=== PATIENT | male | born 1965 | race Caucasian/White ===

== ENCOUNTER 2017-09-24 08:37 | Observation (INO) | payer OTHER ==
--- NOTE | 2017-09-24 09:07 | ED ---
Neuro HPI - General Chief Complaint: Neuro Symptoms/Deficit Stated Complaint: slurred speech,vomiting Time Seen by Provider: 09/24/17 08:50 Source: patient, RN notes reviewed Mode of arrival: wheelchair Limitations: no limitations - History of Present Illness Is the patient presenting with stroke symptoms?: No Initial Comments: This is a 52-year-old male history of CVA and type 2 diabetes who states he had an onset this morning of not feeling well when he went to work he felt shaky like he might pass out. He states he sat down he vomited once.sivan)y. Ph. this lasted less than an hour. Is brought here for evaluation. Denies any blurry vision and headache loss of function to his upper or lower extremities. Of note the patient did run out of his gout and diabetic medication about a week ago he finally get it refilled and started taking a last night and again. He denies any other symptoms at this time. - Related Data Home Medications: Home Medications Medication Instructions Recorded Confirmed Aspirin EC [Ecotrin Low Dose] 81 mg PO DAILY 09/16/16 09/24/17 metFORMIN HCL 1,000 mg PO BID 09/16/16 09/24/17 Colchicine See Taper PO DIRECTED 09/24/17 09/24/17 Indomethacin [Indocin] 50 mg PO TID 09/24/17 09/24/17 Insulin Glargine [Lantus] 100 unit SQ HS 09/24/17 09/24/17 Insulin Glulisine [Apidra] 10 unit SQ AC-TID 09/24/17 09/24/17 Lisinopril [Zestril] 20 mg PO DAILY 09/24/17 09/24/17 Simvastatin [Zocor] 40 mg PO DAILY 09/24/17 09/24/17 Allergies/Adverse Reactions: Allergies Allergy/AdvReac Type Severity Reaction Status Date / Time peanut [Peanut Butter] Allergy Itching Verified 09/24/17 09:13 Review of Systems ROS Statement: Those systems with pertinent positive or pertinent negative responses have been documented in the HPI. ROS Other: All systems not noted in ROS Statement are negative. General Exam - General Exam Comments Initial Comments: This is a well-developed well-nourished awake alert oriented times 3 male Limitations: no limitations General appearance: alert, in no apparent distress Head exam: Present: atraumatic, normocephalic, normal inspection Eye exam: Present: normal appearance, PERRL, EOMI. Absent: scleral icterus, conjunctival injection, periorbital swelling ENT exam: Present: normal exam, mucous membranes moist Neck exam: Present: normal inspection. Absent: tenderness, meningismus, lymphadenopathy Respiratory exam: Present: normal lung sounds bilaterally. Absent: respiratory distress, wheezes, rales, rhonchi, stridor Cardiovascular Exam: Present: regular rate, normal rhythm, normal heart sounds. Absent: systolic murmur, diastolic murmur, rubs, gallop, clicks GI/Abdominal exam: Present: soft, normal bowel sounds. Absent: distended, tenderness, guarding, rebound, rigid Extremities exam: Present: normal inspection, full ROM, normal capillary refill. Absent: tenderness, pedal edema, joint swelling, calf tenderness Back exam: Present: normal inspection Neurological exam: Present: alert, oriented X3, CN II-XII intact Psychiatric exam: Present: normal affect, normal mood Skin exam: Present: warm, dry, intact, normal color. Absent: rash Stroke MDM - Lab Data Result diagrams: 09/24/17 09:00 09/24/17 09:00 Lab Results 09/24/17 09/24/17 09/24/17 Range/Units 08:54 09:00 09:00 WBC 7.6 (3.8-10.6) k/uL RBC 4.55 (4.30-5.90) m/uL Hgb 13.5 (13.0-17.5) gm/dL Hct 41.4 (39.0-53.0) % MCV 91.0 (80.0-100.0) fL MCH 29.7 (25.0-35.0) pg MCHC 32.7 (31.0-37.0) g/dL RDW 13.6 (11.5-15.5) % Plt Count 200 (150-450) k/uL Neutrophils % 80 % Lymphocytes % 12 % Monocytes % 4 % Eosinophils % 2 % Basophils % 1 % Neutrophils # 6.1 (1.3-7.7) k/uL Lymphocytes # 0.9 L (1.0-4.8) k/uL Monocytes # 0.3 (0-1.0) k/uL Eosinophils # 0.2 (0-0.7) k/uL Basophils # 0.0 (0-0.2) k/uL PT (9.0-12.0) sec INR (<1.2) APTT (22.0-30.0) sec Sodium (137-145) mmol/L Potassium (3.5-5.1) mmol/L Chloride (98-107) mmol/L Carbon Dioxide (22-30) mmol/L Anion Gap mmol/L BUN (9-20) mg/dL Creatinine (0.66-1.25) mg/dL Est GFR (MDRD) Af Amer (>60 ml/min/1.73 sqM) Est GFR (MDRD) Non-Af (>60 ml/min/1.73 sqM) Glucose (74-99) mg/dL POC Glucose (mg/dL) 214 H (75-99) mg/dL POC Glu [employer] Lead ID Lizzie Osman Calcium (8.4-10.2) mg/dL Magnesium (1.6-2.3) mg/dL Total Bilirubin (0.2-1.3) mg/dL AST (17-59) U/L ALT (21-72) U/L Alkaline Phosphatase (38-126) U/L Total Creatine Kinase 513 H (55-170) U/L CK-MB (CK-2) 6.1 H* (0.0-2.4) ng/mL CK-MB (CK-2) Rel Index 1.2 Troponin I <0.012 (0.000-0.034) ng/mL Total Protein (6.3-8.2) g/dL Albumin (3.5-5.0) g/dL 09/24/17 09/24/17 Range/Units 09:00 09:00 WBC (3.8-10.6) k/uL RBC (4.30-5.90) m/uL Hgb (13.0-17.5) gm/dL Hct (39.0-53.0) % MCV (80.0-100.0) fL MCH (25.0-35.0) pg MCHC (31.0-37.0) g/dL RDW (11.5-15.5) % Plt Count (150-450) k/uL Neutrophils % % Lymphocytes % % Monocytes % % Eosinophils % % Basophils % % Neutrophils # (1.3-7.7) k/uL Lymphocytes # (1.0-4.8) k/uL Monocytes # (0-1.0) k/uL Eosinophils # (0-0.7) k/uL Basophils # (0-0.2) k/uL PT 10.2 (9.0-12.0) sec INR 1.0 (<1.2) APTT 22.6 (22.0-30.0) sec Sodium 141 (137-145) mmol/L Potassium 4.8 (3.5-5.1) mmol/L Chloride 108 H (98-107) mmol/L Carbon Dioxide 21 L (22-30) mmol/L Anion Gap 12 mmol/L BUN 16 (9-20) mg/dL Creatinine 0.69 (0.66-1.25) mg/dL Est GFR (MDRD) Af Amer >60 (>60 ml/min/1.73 sqM) Est GFR (MDRD) Non-Af >60 (>60 ml/min/1.73 sqM) Glucose 236 H (74-99) mg/dL POC Glucose (mg/dL) (75-99) mg/dL POC Glu Retail Sales Lead ID Calcium 9.1 (8.4-10.2) mg/dL Magnesium 1.6 (1.6-2.3) mg/dL Total Bilirubin 0.5 (0.2-1.3) mg/dL AST 45 (17-59) U/L ALT 41 (21-72) U/L Alkaline Phosphatase 96 (38-126) U/L Total Creatine Kinase (55-170) U/L CK-MB (CK-2) (0.0-2.4) ng/mL CK-MB (CK-2) Rel Index Troponin I (0.000-0.034) ng/mL Total Protein 7.9 (6.3-8.2) g/dL Albumin 4.0 (3.5-5.0) g/dL - NIH Stroke Scale 1a. Level of Consciousness: (0) alert 1b. LOC Questions: (0) answers correctly 1c. LOC Commands: (0) performs tasks correctly 2. Best Gaze: (0) normal 3. Visual: (0) no visual loss 4. Facial Palsy: (0) normal symmetrical movement 5a. Motor Arm Left: (0) no drift 5b. Motor Arm Right: (0) no drift 6a. Motor Leg Left: (0) no drift 6b. Motor Leg Right: (0) no drift 7. Limb Ataxia: (0) absent 8. Sensory: (0) normal 9. Best Language: (0) no aphasia 10. Dysarthria: (0) normal 11. Extinction/Inattention: (0) no abnormality - Medical Decision Making I did discuss findings with the patient family members or present. I also discussed the case with Dr. Manzano. Patient will be admitted for evaluation of TIA neurology will be consulted. - EKG Data -: EKG Interpreted by Nd EKG shows normal: sinus rhythm (Sinus rhythm rate is 66. Interval 172 QRS 142 QT/QTC of 440/461 evidence a right bundle-branch block no acute ST-T wave changes.) Past Medical History Past Medical History: CVA/TIA, Diabetes Mellitus, Hypertension Additional Past Medical History / Comment(s): gout History of Any Multi-Drug Resistant Organisms: MRSA Date of last positivie culture/infection: 2012 MDRO Source:: face/back Past Surgical History: No Surgical Hx Reported Past Psychological History: No Psychological Hx Reported Smoking Status: Never smoker Past Alcohol Use History: None Reported Past Drug Use History: None Reported Course Vital Signs 09/24/17 09/24/17 09/24/17 08:42 09:00 10:15 Temperature 98.1 F Pulse Rate 70 70 64 Respiratory 20 18 18 Rate Blood Pressure 162/89 145/91 137/84 O2 Sat by Pulse 100 98 98 Oximetry 09/24/17 09/24/17 10:40 11:34 Temperature Pulse Rate 63 79 Respiratory 18 18 Rate Blood Pressure 133/83 127/88 O2 Sat by Pulse 98 98 Oximetry - Reevaluation(s) Reevaluation #1: 09/24/17 11:36 Reevaluation the patient earlier revealed no recurrence of symptoms. Disposition Clinical Impression: Transient cerebral ischemia, Near syncope Disposition: ADMITTED IP TO THIS HOSP Condition: Stable Referrals: Nonstaff,Physician [REFERRING] - 1-2 days
[2017-09-24] MEDS: SODIUM CHLORIDE 0.9% 1,000 ML IV STA ×3 (09:10→18:04)
[2017-09-24 09:22] LABS: Glucose,Whole Blood 214 mg/dL (75-99)
[2017-09-24 09:25] LABS: Basophils % (A) 1 %; CH 30.6; CHCM 33.8; Eosinophils # (A) 0.2 k/uL (0-0.7); Eosinophils % (A) 2 %; HCT 41.4 % (39.0-53.0); HGB 13.5 gm/dL (13.0-17.5); Luc # (Auto) 0.13; Luc % (Auto) 2; Lymphocytes # (A) 0.9 k/uL (1.0-4.8); Lymphocytes % (A) 12 %; MCH 29.7 pg (25.0-35.0); MCHC 32.7 g/dL (31.0-37.0); Mean Platelet Volume 7.1; Monocytes # (A) 0.3 k/uL (0-1.0); Monocytes % (A) 4 %; Neutrophils # (A) 6.1 k/uL (1.3-7.7); Neutrophils % (A) 80 %; RBC 4.55 m/uL (4.30-5.90); RDW 13.6 % (11.5-15.5); WBC 7.6 k/uL (3.8-10.6); WBC (Perox) 7.84
[2017-09-24 09:35] LABS: Partial Thromboplastin Time 22.6 sec (22.0-30.0)
[2017-09-24 09:41] LABS: ALT 41 U/L (21-72); AST 45 U/L (17-59); Alkaline Phosphatase 96 U/L (38-126); Anion Gap 12 mmol/L; Blood Urea Nitrogen 16 mg/dL (9-20); Calcium 9.1 mg/dL (8.4-10.2); Carbon Dioxide 21 mmol/L (22-30); Chloride 108 mmol/L (98-107); Glucose 236 mg/dL (74-99); Magnesium 1.6 mg/dL (1.6-2.3); Non-African American GFR(MDRD) >60 (>60 ml/min/1.73 sqM); Sodium 141 mmol/L (137-145); Total Bilirubin 0.5 mg/dL (0.2-1.3); Total Protein 7.9 g/dL (6.3-8.2)
[2017-09-24 09:42] LABS: Prothrombin Time 10.2 sec (9.0-12.0)
--- NOTE | 2017-09-24 09:43 | CT ---
EXAMINATION TYPE: CT brain wo con for TPA DATE OF EXAM: 09/24/2017 COMPARISON: 05/24/2010 HISTORY: 52-year-old male neurologic deficits, Slurred speech, "not feeling well" TECHNIQUE: Examination was done in axial plane without intravenous contrast. Coronal and sagittal r econstructions performed. CT DLP: 1072.3 mGycm Automated exposure control for dose reduction was used. FINDINGS: There is no evidence of acute intracranial hemorrhage, acute ischemic changes, mass, mass-effect, or extra-axial fluid collection. There is no effacement of cerebral sulci or basal subarachnoid cister ns. There is no hydrocephalus. There is no midline shift. Guzmán-white matter distinction is preserv ed. Mild mucosal thickening ethmoid air cells and inferior maxillary sinuses. Patient's gaze is divergent suggesting underlying strabismus. IMPRESSION: No acute intracranial abnormality seen at this time. If symptoms persist, follow-up CT or MRI.
[2017-09-24 09:49] LABS: Creatine Kinase 513 U/L (55-170)
--- NOTE | 2017-09-24 09:51 | XR ---
EXAMINATION TYPE: XR chest 2V DATE OF EXAM: 09/24/2017 COMPARISON: Prior chest x-ray 05/24/2010 HISTORY: Altered mental status TECHNIQUE: Frontal and lateral views of the chest are obtained. FINDINGS: Patient is rotated. There are overlying cardiac leads. Right hemidiaphragm is elevated. No airspace disease, pneumothorax, or pleural effusion. Eventration of the right hemidiaphragm is noted . Cardiomediastinal silhouette, pulmonary vascularity and anisha are not significantly changed accounti ng for technique. IMPRESSION: Stable exam, no acute cardiopulmonary disease.
[2017-09-24 09:54] LABS: Potassium 4.8 mmol/L (3.5-5.1)
[2017-09-24 10:01] LABS: Troponin I <0.012 ng/mL (0.000-0.034)
[2017-09-24 10:15] LABS: Creatine Kinase MB 6.1 ng/mL (0.0-2.4)
[2017-09-24] MEDS ORDERED: ASPIRIN 325 MG TAB PO STA (11:38)
[2017-09-24] MEDS ORDERED: SODIUM CHLORIDE 0.9% 1,000 ML IV SCH (11:45)
[2017-09-24] MEDS ORDERED: ASPIRIN 81 MG PO STA (11:49)
--- NOTE | 2017-09-24 14:51 | P.HPIM ---
History of Present Illness H&P Date: 09/24/17 Chief Complaint: near syncope 52 years old male with past medical history ofTIA ( near syncope) 7 years ago, diabetes2 with diabetic retinopathy, hypertension patient of Dr. Trinidad presents today with symptoms of dizziness that started suddenly at work associated with increased generalized weakness. Patient said he became nauseous during the episode. He called his at 7:30 AM who noticed slurring of speech and patient was brought to the ED for evaluation. On my evaluation patient is asymptomatic with no dizziness or weakness or numbness in any of the extremities. Patient did not have any slurring of speech. According to the bedside patient had missed his evening dose of insulin and has not been taking his metformin for past 7 days. Patient is known to be noncompliant to his insulin and last HbA1c was 12. He denies increased urination, chest pain, palpitation, ringing of ears, loss of vision or hearing loss. Patient denies any balance abnormality when he walks.Laboratory workup including CBC was unremarkable, BNP suggested mild metabolic acidosis with a glucose of 236. CK was elevated explained [address] head was unremarkable. Carotid Dopplers ordered, Chest x-ray negative for any acute abnormality. Neurology was consulted for an acute stroke. Telemetry was ordered. Echo was ordered. Review of Systems Constitutional: Denies chills, Denies fever Eyes: denies blurred vision, denies pain Ears: deny: decreased hearing, ear discharge Ears, nose, mouth and throat: Denies headache, Denies sore throat Cardiovascular: Reports lightheadedness, Denies chest pain, Denies edema, Denies high blood pressure, Denies leg edema, Denies orthopnea, Denies rapid heart beat, Denies shortness of breath Respiratory: Denies cough Gastrointestinal: Denies abdominal pain, Denies diarrhea, Denies nausea, Denies vomiting Genitourinary: Denies discharge, Denies dysuria, Denies incontinence, Denies urinary frequency, Denies urinary retention Musculoskeletal: Denies frequent falls, Denies gait dysfunction, Denies leg numbness/tingling Integumentary: Denies pruritus, Denies rash Neurological: Reports change in speech, Denies aphasia, Denies ataxia, Denies balance difficulties, Denies change in mentation, Denies confusion, Denies double vision, Denies gait dysfunction, Denies loss of vision, Denies motor disturbance, Denies numbness, Denies weakness Endocrine: Denies fatigue, Denies weight change Past Medical History Past Medical History: CVA/TIA, Diabetes Mellitus, GERD/Reflux, Hyperlipidemia, Hypertension Additional Past Medical History / Comment(s): TIA in 2009, IDDM type II, gout R great toe. History of Any Multi-Drug Resistant Organisms: MRSA Date of last positivie culture/infection: 2012 MDRO Source:: face/back Past Surgical History: No Surgical Hx Reported Additional Past Surgical History / Comment(s): colonoscopy-normal Additional Past Anesthesia/Blood Transfusion Reaction / Comment(s): Pt has never had general or spinal anesthesia. Smoking Status: Never smoker - Past Family History Father Family Medical History: Diabetes Mellitus Mother Family Medical History: No Reported History, Diabetes Mellitus Medications and Allergies Home Medications Medication Instructions Recorded Confirmed Type Aspirin EC [Ecotrin Low Dose] 81 mg PO DAILY 09/16/16 09/24/17 History metFORMIN HCL 1,000 mg PO BID 09/16/16 09/24/17 History Colchicine See Taper PO DIRECTED 09/24/17 09/24/17 History Indomethacin [Indocin] 50 mg PO TID 09/24/17 09/24/17 History Insulin Glargine [Lantus] 100 unit SQ HS 09/24/17 09/24/17 History Insulin Glulisine [Apidra] 10 unit SQ AC-TID 09/24/17 09/24/17 History Lisinopril [Zestril] 20 mg PO DAILY 09/24/17 09/24/17 History Simvastatin [Zocor] 40 mg PO DAILY 09/24/17 09/24/17 History Allergies Allergy/AdvReac Type Severity Reaction Status Date / Time peanut [Peanut Butter] Allergy Itching Verified 09/24/17 09:13 Physical Exam Vitals: Vital Signs Temp Pulse Pulse Resp BP BP Pulse Ox 09/24/17 13:55 98.7 F 82 20 136/80 98 09/24/17 11:34 79 18 127/88 98 09/24/17 10:40 63 18 133/83 98 09/24/17 10:15 64 18 137/84 98 09/24/17 09:45 63 18 129/82 98 09/24/17 09:15 64 18 134/88 98 09/24/17 09:00 70 18 145/91 98 09/24/17 08:42 98.1 F 70 20 162/89 100 Intake and Output 09/23/17 09/24/17 09/24/17 22:59 06:59 14:59 Other: Weight 103.419 kg Patient Weight 09/25/17 06:59 Weight 103.419 kg - Constitutional General appearance: no acute distress - EENT Eyes: EOMI, PERRLA, no photophobia, dentition normal Ears: bilateral: normal - Neck Neck: lymphadenopathy, normal ROM, no stridor Carotids: bilateral: upstroke diminished - Respiratory Respiratory: bilateral: CTA, negative: diminished, dullness, rales, rhonchi, wheezing - Cardiovascular Rhythm: regular Heart sounds: normal: S1, S2 Abnormal Heart Sounds: no systolic murmur, no diastolic murmur - Gastrointestinal General gastrointestinal: normal bowel sounds, no organomegaly - Neurologic Strength, right lower extremity slightly weaker than left with 4+/5 No numbness, reflexes are normal, no coordination defect Neurologic: CNII-XII intact - Psychiatric Psychiatric: A&O x's 3, appropriate affect Results CBC & Chem 7: 09/24/17 09:00 09/24/17 09:00 Labs: Abnormal Lab Results - Last 24 Hours (Table) 09/24/17 09/24/17 09/24/17 Range/Units 08:54 09:00 09:00 Lymphocytes # 0.9 L (1.0-4.8) k/uL Chloride (98-107) mmol/L Carbon Dioxide (22-30) mmol/L Glucose (74-99) mg/dL POC Glucose (mg/dL) 214 H (75-99) mg/dL Total Creatine Kinase 513 H (55-170) U/L CK-MB (CK-2) 6.1 H* (0.0-2.4) ng/mL 09/24/17 Range/Units 09:00 Lymphocytes # (1.0-4.8) k/uL Chloride 108 H (98-107) mmol/L Carbon Dioxide 21 L (22-30) mmol/L Glucose 236 H (74-99) mg/dL POC Glucose (mg/dL) (75-99) mg/dL Total Creatine Kinase (55-170) U/L CK-MB (CK-2) (0.0-2.4) ng/mL Thrombosis Risk Factor Assmnt - DVT/VTE Prophylaxis DVT/VTE Prophylaxis: Pharmacologic Prophylaxis ordered, Mechanical Prophylaxis ordered - Choose All That Apply Any of the Below Risk Factors Present?: Yes Each Factor Represents 1 point: Age 41-60 years, Obesity (BMI >25) Other Risk Factors: No Other congenital or acquired thrombophilia - If yes, enter type in comment: No Thrombosis Risk Factor Assessment Total Risk Factor Score: 2 Thrombosis Risk Factor Assessment Level: Low Risk Assessment and Plan Plan: #1 Presyncope- differential include TIA/ CVA, dehydration secondary to hyperglycemia, arrhythmia - Continue aspirin and statin - Neurology consult placed - Carotid Dopplers and echo ordered - There is some weakness in the right as compared to the left lower extremity but patient states it's chronic, PTOT consulted - Orthostatic check for dehydration as patient was hyperglycemic - Telemetry - Speech evaluation #2 type 2 diabetes - Continue Lantus at 75 units at at bedtime with lispro 10 units with meal #3 hypertension hold lisinopril for permissive hypertension #4 gout continue colchicine DVT prophylaxis with heparin CODE STATUS full code Disposition - patient may need 1 or 2 inpatient nights
--- NOTE | 2017-09-24 15:17 | US ---
EXAMINATION TYPE: US carotid duplex BILAT DATE OF EXAM: 09/24/2017 COMPARISON: Prior carotid ultrasound May 25, 2010 CLINICAL HISTORY: Stenosis. slurred speech, h/o TIA EXAM MEASUREMENTS: RIGHT: Peak Systolic Velocity (PSV) cm/sec ----- Right CCA: 70.3 ----- Right ICA: 83.9 ----- Right ECA: 97.9 ICA/CCA ratio: 1.2 RIGHT: End Diastole cm/sec ----- Right CCA: 17.1 ----- Right ICA: 17.9 ----- Right ECA: 17.1 LEFT: Peak Systolic Velocity (PSV) cm/sec ----- Left CCA: 54.4 ----- Left ICA: 100.0 ----- Left ECA: 87.8 ICA/CCA ratio: 1.8 LEFT: End Diastole cm/sec ----- Left CCA: 18.5 ----- Left ICA: 39.8 ----- Left ECA: 12.8 VERTEBRALS (direction of flow): Right Vertebral: Antegrade Left Vertebral: Antegrade Rhythm: Normal Mild homogeneous plaque seen with no stenosis Grayscale images show mild shadowing peripheral plaque at bilateral carotid bulbs. Velocity measureme nts and ratios are within normal limits bilaterally. IMPRESSION: Mild atherosclerotic change bilaterally without hemodynamically significant stenosis see n in either internal carotid artery.
[2017-09-24] MEDS: INSULIN ASPART 100 UNIT/ML 1 ML 10 ML VIAL SQ SCH ×4 (16:22→21:38)
[2017-09-24 16:52] LABS: Glucose,Whole Blood 150 mg/dL (75-99)
--- NOTE | 2017-09-24 19:49 | P.CNNES ---
History of Present Illness Consult date: 09/24/17 History of Present Illness: The patient is a 52-year-old right-handed male who was in his usual state of health until this morning he got up to go to work and he did take a new medication which was prescribed for his gout.. He felt lightheadedness at work and he had to sit down and then he developed some nausea and went to the restroom and vomited. He called his and asked her to bring his Accu-Chek to work so he could check his glucose. He did not take his insulin the previous night. His felt that his speech was slurred and she came to the workplace and took him to the hospital. The patient had been off of his medications for a week and then restarted them last night including lisinopril He denied focal weakness numbness visual changes loss of speech or headache. He had a CAT scan of the brain which was normal. He had a carotid ultrasound which was negative. He states he had a similar episode about 7 years ago where he almost passed out. At that time he had been started on aspirin which she has routinely been taking. He takes 1 low-dose aspirin daily. He has also been on lisinopril had been off of it for a week and then suddenly took it last night. In the emergency room he had total creatinine kinase of 513 and a CK-MB of 6.1 Review of Systems Constitutional: Denies chills, Denies fever Ears, nose, mouth and throat: Denies headache, Denies sore throat Cardiovascular: Denies chest pain, Denies shortness of breath Respiratory: Denies cough Musculoskeletal: Denies myalgias Neurological: Denies numbness, Denies weakness Psychiatric: Denies anxiety, Denies depression Past Medical History Past Medical History: CVA/TIA, Diabetes Mellitus, GERD/Reflux, Hyperlipidemia, Hypertension Additional Past Medical History / Comment(s): TIA in 2009, IDDM type II, gout R great toe. History of Any Multi-Drug Resistant Organisms: MRSA Date of last positivie culture/infection: 2012 MDRO Source:: face/back Past Surgical History: No Surgical Hx Reported Additional Past Surgical History / Comment(s): colonoscopy-normal Additional Past Anesthesia/Blood Transfusion Reaction / Comment(s): Pt has never had general or spinal anesthesia. Smoking Status: Never smoker - Past Family History Father Family Medical History: Diabetes Mellitus Mother Family Medical History: No Reported History, Diabetes Mellitus Medications and Allergies Home Medications Medication Instructions Recorded Confirmed Type Aspirin EC [Ecotrin Low Dose] 81 mg PO DAILY 09/16/16 09/24/17 History metFORMIN HCL 1,000 mg PO BID 09/16/16 09/24/17 History Colchicine See Taper PO DIRECTED 09/24/17 09/24/17 History Indomethacin [Indocin] 50 mg PO TID 09/24/17 09/24/17 History Insulin Glargine [Lantus] 100 unit SQ HS 09/24/17 09/24/17 History Insulin Glulisine [Apidra] 10 unit SQ AC-TID 09/24/17 09/24/17 History Lisinopril [Zestril] 20 mg PO DAILY 09/24/17 09/24/17 History Simvastatin [Zocor] 40 mg PO DAILY 09/24/17 09/24/17 History Allergies Allergy/AdvReac Type Severity Reaction Status Date / Time peanut [Peanut Butter] Allergy Itching Verified 09/24/17 09:13 Physical Examination - Vital Signs Vital Signs: Vital Signs Temp Pulse Pulse Pulse Resp BP BP 09/24/17 16:15 97.0 F L 65 18 126/74 09/24/17 14:10 97.2 F L 66 18 133/84 09/24/17 13:55 98.7 F 82 20 136/80 09/24/17 11:34 79 18 127/88 09/24/17 10:40 63 18 133/83 09/24/17 10:15 64 18 137/84 09/24/17 09:45 63 18 129/82 09/24/17 09:15 64 18 134/88 09/24/17 09:00 70 18 145/91 09/24/17 08:42 98.1 F 70 20 162/89 Pulse Ox 09/24/17 16:15 97 09/24/17 14:10 99 09/24/17 13:55 98 09/24/17 11:34 98 09/24/17 10:40 98 09/24/17 10:15 98 09/24/17 09:45 98 09/24/17 09:15 98 09/24/17 09:00 98 09/24/17 08:42 100 Intake and Output 09/24/17 09/24/17 09/24/17 06:59 14:59 22:59 Intake Total 800 240 Balance 800 240 Intake: Intake, IV Titration 800 Amount Sodium Chloride 0.9% 1, 800 000 ml @ 100 mls/hr IV . Q10H STA Rx#:[id number] Oral 240 Other: Weight 103.419 kg Patient Weight 09/25/17 06:59 Weight 103.419 kg - Constitutional General appearance: obese - EENT EENT: ATNC, hearing intact, vision intact - Respiratory Respiratory: lungs clear - Cardiovascular Cardiovascular: regular rate, normal S1, normal S2 - Neurologic Cranial nerve examination: PERRL, EOMI, VFF, V1/V2/V3 grossly intact, face symmetric, tongue midline Speech examination: intact Sensorimotor examination: intact Detailed motor examination: grossly full strength in all extremities - Psychiatric Psychiatric: mood/affect appropriate Results - Laboratory Findings CBC and BMP: 09/24/17 09:00 09/24/17 09:00 Abnormal Lab Findings: Abnormal Labs 09/24/17 09/24/17 09/24/17 08:54 09:00 09:00 Lymphocytes # 0.9 L Chloride Carbon Dioxide Glucose POC Glucose (mg/dL) 214 H Total Creatine Kinase 513 H CK-MB (CK-2) 6.1 H* 09/24/17 09/24/17 09:00 16:50 Lymphocytes # Chloride 108 H Carbon Dioxide 21 L Glucose 236 H POC Glucose (mg/dL) 150 H Total Creatine Kinase CK-MB (CK-2) Assessment and Plan (1) Near syncope Current Visit: Yes Status: Acute SNOMED Code(s): 736900137 (2) Transient cerebral ischemia Current Visit: Yes Status: Acute SNOMED Code(s): 395404853 Plan: The patient is a 52-year-old man with history of near syncope. He presented to the hospital with episode at work consisting of a feeling of lightheadedness which suddenly came upon him where he had sit down feeling like he was going to pass out. He also had some nausea and vomiting afterward. He felt lightheaded and his brought him to the emergency room. He is currently back to his baseline. The patient has likely had a near syncopal event. His TIA workup has so far been negative and echo is pending. Recommend increase low-dose aspirin to 80 mg twice a day. Recommend cardiology evaluation.
[2017-09-24] MEDS ORDERED: INSULIN DETEMIR 100 UNIT/ML 10 ML VIAL SQ SCH (21:00)
[2017-09-24] MEDS: FAMOTIDINE 20 MG/2 ML VIAL IV SCH (21:00)
[2017-09-24] MEDS: SODIUM CHLORIDE 0.9% 1,000 ML IV SCH (21:00)
[2017-09-24] MEDS: HEPARIN SODIUM,PORCINE 5,000 UNIT/ML 1 ML VIAL SQ SCH (21:02)
[2017-09-24 21:20] LABS: Glucose,Whole Blood 86 mg/dL (75-99)
[2017-09-24 21:23] LABS: Appearance,Urine Clear (Clear); Bilirubin,Urine Negative (Negative); Glucose,Urine (UA) 3+ (Negative); Ketones,Urine Negative (Negative); Leukocyte Esterase,Urine Negative (Negative); Nitrite,Urine Negative (Negative); PH, Urine 6.5 (5.0-8.0); Protein,Urine Negative (Negative); Specific Gravity,Urine 1.014 (1.001-1.035); UA Billing (MACRO vs. MICRO) CHEM; Urobilinogen,Urine <2.0 mg/dL (<2.0)
[2017-09-25] MEDS: SODIUM CHLORIDE 0.9% 1,000 ML IV SCH ×2 (05:02→12:14)
[2017-09-25 06:20] LABS: Glucose,Whole Blood 146 mg/dL (75-99)
[2017-09-25 06:23] LABS: Basophils % (A) 1 %; CH 29.8; CHCM 32.4; Eosinophils # (A) 0.3 k/uL (0-0.7); Eosinophils % (A) 5 %; HCT 37.6 % (39.0-53.0); HDW 2.69; HGB 11.9 gm/dL (13.0-17.5); Luc # (Auto) 0.17; Luc % (Auto) 3; Lymphocytes # (A) 1.5 k/uL (1.0-4.8); Lymphocytes % (A) 27 %; MCH 29.3 pg (25.0-35.0); MCHC 31.6 g/dL (31.0-37.0); MCV 92.5 fL (80.0-100.0); Mean Platelet Volume 7.5; Monocytes # (A) 0.3 k/uL (0-1.0); Monocytes % (A) 6 %; Neutrophils # (A) 3.3 k/uL (1.3-7.7); Neutrophils % (A) 59 %; RBC 4.07 m/uL (4.30-5.90); RDW 15.1 % (11.5-15.5); WBC 5.7 k/uL (3.8-10.6); WBC (Perox) 5.45
[2017-09-25 06:31] LABS: Anion Gap 5 mmol/L; Blood Urea Nitrogen 15 mg/dL (9-20); Calcium 8.9 mg/dL (8.4-10.2); Carbon Dioxide 23 mmol/L (22-30); Chloride 111 mmol/L (98-107); Cholesterol 176 mg/dL (<200); Glucose 146 mg/dL (74-99); HDL Cholesterol 27 mg/dL (40-60); Non-African American GFR(MDRD) >60 (>60 ml/min/1.73 sqM); Potassium 4.2 mmol/L (3.5-5.1); Sodium 139 mmol/L (137-145)
[2017-09-25] MEDS: INSULIN ASPART 100 UNIT/ML 1 ML 10 ML VIAL SQ SCH ×4 (07:07→12:15)
[2017-09-25] MEDS: FAMOTIDINE 20 MG/2 ML VIAL IV SCH (08:05)
[2017-09-25 08:09] VITALS: TEMP 97
[2017-09-25] MEDS: HEPARIN SODIUM,PORCINE 5,000 UNIT/ML 1 ML VIAL SQ SCH (08:09)
[2017-09-25] MEDS ORDERED: CLOPIDOGREL 75 MG TAB PO SCH (09:00)
[2017-09-25] MEDS ORDERED: NON-FORMULARY DRUG (Aspirin Ec 81 MG) PO SCH (09:00)
[2017-09-25] MEDS ORDERED: ASPIRIN 325 MG TAB PO SCH (09:00)
[2017-09-25] MEDS ORDERED: ATORVASTATIN 20 MG TAB PO SCH (09:00)
[2017-09-25 11:06] VITALS: BP 145/80; PULSE 65; RESP 18
[2017-09-25 12:04] LABS: Glucose,Whole Blood 181 mg/dL (75-99)
--- NOTE | 2017-09-25 12:24 | ECHOF ---
Referral Reason:near syncope MEASUREMENTS -------- HEIGHT: 165.1 cm WEIGHT: 103.4 kg BP: 30/40 RVIDd: 3.9 cm (< 3.3) IVSd: 1.3 cm (0.6 - 1.1) LVIDd: 4.6 cm (3.9 - 5.3) LVPWd: 1.1 cm (0.6 - 1.1) IVSs: 1.7 cm LVIDs: 3.3 cm LVPWs: 1.1 cm LA Diam: 4.7 cm (2.7 - 3.8) LAESV Index (A-L): 30.60 ml/m Ao Diam: 3.5 cm (2.0 - 3.7) AV Cusp: 2.0 cm (1.5 - 2.6) LA Diam: 5.0 cm (2.7 - 3.8) MV EXCURSION: 19.523 mm (> 18.000) MV EF SLOPE: 90 mm/s (70 - 150) EPSS: 0.5 cm MV E Jaguar: 0.65 m/s MV DecT: 175 ms MV A Jaguar: 0.96 m/s MV E/A Ratio: 0.67 RAP: 5.00 mmHg RVSP: 24.03 mmHg FINDINGS -------- Sinus rhythm. This was a technically excellent study. The left ventricular size is normal. There is mild concentric left ventricular hypertrophy. Overa ll left ventricular systolic function is normal with, an EF between 55 - 60 %. The right ventricle is mildly enlarged. LA is midly dilated 29-33ml/m2. The right atrial size is normal. The aortic valve is trileaflet, and appears structurally normal. No aortic stenosis or regurgitation. Mild mitral regurgitation is present. No regurgitation noted There is no evidence of pulmonary hypertension. The right ventricular syst olic pressure, as measured by Doppler, is 24.03mmHg. There is no pulmonic regurgitation present. The aortic root size is normal. There is no pericardial effusion. CONCLUSIONS -------- 1. The left ventricular size is normal. 2. There is mild concentric left ventricular hypertrophy. 3. Overall left ventricular systolic function is normal with, an EF between 55 - 60 %. 4. The right ventricle is mildly enlarged. 5. LA is midly dilated 29-33ml/m2. 6. The aortic valve is trileaflet, and appears structurally normal. No aortic stenosis or regurgitati on. 7. Mild mitral regurgitation is present. 8. No regurgitation noted 9. There is no evidence of pulmonary hypertension. 10. The right ventricular systolic pressure, as measured by Doppler, is 24.03mmHg. 11. There is no pulmonic regurgitation present. 12. The aortic root size is normal. 13. There is no pericardial effusion. LICENSED PRACTICAL NURSE: Deb Knowles RDCS
--- NOTE | 2017-09-25 12:59 | P.DS ---
Providers Date of admission: 09/24/17 11:38 Expected date of discharge: 09/25/17 Attending physician: Tamiko Manzano MD Consults: 09/24/17 11:51 Consult Physician Stat Consulting Provider: Shankar Waldron Consult Reason/Comments: TIA Do you want consulting provider notified?: Yes Primary care physician: [facility] Course: 52 years old male with past medical history ofTIA ( near syncope) 7 years ago, diabetes2 with diabetic retinopathy, hypertension patient of Dr. Trinidad presents today with symptoms of dizziness that started suddenly at work associated with increased generalized weakness. Patient said he became nauseous during the episode. He called his at 7:30 AM who noticed slurring of speech and patient was brought to the ED for evaluation. On my evaluation patient is asymptomatic with no dizziness or weakness or numbness in any of the extremities. Patient did not have any slurring of speech. According to the bedside patient had missed his evening dose of insulin and has not been taking his metformin for past 7 days. Patient is known to be noncompliant to his insulin and last HbA1c was 12. He denies increased urination, chest pain, palpitation, ringing of ears, loss of vision or hearing loss. Patient denies any balance abnormality when he walks.Laboratory workup including CBC was unremarkable, BNP suggested mild metabolic acidosis with a glucose of 236. CK was elevated explained [address] head was unremarkable. Carotid Dopplers ordered, Chest x-ray negative for any acute abnormality. Neurology was consulted for an acute stroke. Telemetry was ordered. Echo was ordered. 09/25: Carotid Doppler showed mild atherosclerotic change bilaterally without hemodynamically significant stenosis. Patient has been seen by Dr. Chicho Waldron with recommendations to increase low-dose aspirin to twice daily and cardiology evaluation. Echocardiogram revealed mild concentric left hypertrophy, EF 55-60% , LA mildly dilated at 29-33. No aortic stenosis or regurgitation. Mild mitral regurgitation. No pulmonary hypertension. Orthostatic vital signs were taken which were negative. Patient will be discharged home today in stable condition. Discharge Diagnoses: #1 Presyncope secondary to dehydration #2 type 2 diabetes, insulin requiring #3 hypertension #4 gout continue colchicine Discharge plan: Return home Impression and plan of care have been directed as dictated by the signing physician. Selma Hoffman nurse practitioner acting as scribe for signing physician. Patient Condition at Discharge: Good Plan - Discharge Summary Discharge Rx Participant: No New Discharge Prescriptions: Continue metFORMIN HCL 1,000 mg PO BID Insulin Glulisine [Apidra] 10 unit SQ AC-TID Colchicine See Taper PO DIRECTED Lisinopril [Zestril] 20 mg PO DAILY Simvastatin [Zocor] 40 mg PO DAILY Insulin Glargine [Lantus] 100 unit SQ HS Indomethacin [Indocin] 50 mg PO TID Changed Aspirin EC [Ecotrin Low Dose] 81 mg PO BID #0 Discharge Medication List metFORMIN HCL 1,000 mg PO BID 09/16/16 [History] Colchicine See Taper PO DIRECTED 09/24/17 [History] Indomethacin [Indocin] 50 mg PO TID 09/24/17 [History] Insulin Glargine [Lantus] 100 unit SQ HS 09/24/17 [History] Insulin Glulisine [Apidra] 10 unit SQ AC-TID 09/24/17 [History] Lisinopril [Zestril] 20 mg PO DAILY 09/24/17 [History] Simvastatin [Zocor] 40 mg PO DAILY 09/24/17 [History] Aspirin EC [Ecotrin Low Dose] 81 mg PO BID #0 09/25/17 [Rx] Follow up Appointment(s)/Referral(s): Adam Werner MD [Primary Care Provider] - 10/01/17 2:30 pm Patient Instructions/Handouts: Syncope (DC) Discharge Disposition: HOME SELF-CARE
--- NOTE | 2017-09-25 20:48 | EEG ---
ELECTROENCEPHALOGRAM REPORT DATE OF EE09/25/2017. REFERRING PHYSICIAN: Dr. Manzano. CONSULTING INTERPRETING PHYSICIAN: Dr. Shankar Waldron. ELECTROENCEPHALOGRAPHIC EXAMINATION REPORT: INDICATION FOR EXAMINATION: This patient is a 52-year-old male being evaluated for possible TIA. AGE: 52. EEG FINDINGS: A routine 21 channel awake digital EEG recording was accomplished utilizing the 10-20 international system with bipolar and referential montages. The background activity in the most alert resting state consists of a low to medium amplitude, fairly well- developed and well sustained 7-8 Hz activity over the posterior head regions. This posterior rhythm attenuates to eye opening. There is a small amount of low amplitude 18-20 Hz beta activity seen maximally over the anterior head regions. Muscle and movement artifact was observed on a few occasions during the tracing. Hyperventilation was not performed. Photic stimulation and flash frequencies of 2-30 Hz produced a good symmetrical occipital driving response. No epileptiform discharges were seen. IMPRESSION: This EEG is normal for the patient's age. The EEG failed to reveal any focal, lateralized, or epileptiform abnormalities. Clinical correlation is recommended. MMODL / IJN: [id number] /
[2017-09-25] MEDS ORDERED: ASPIRIN 81 MG PO SCH (21:00)
[2017-09-25] MEDS ORDERED: FAMOTIDINE 20 MG TAB PO SCH (21:00)
== END 2017-09-25 14:29 | disposition home or self-care (01) ==
LOC: EC 08:37 → 6SEL 11:38
PROVIDERS: ADMIT Internal Medicine; ATTEND Internal Medicine
DX: E86.0 Dehydration (principal); K21.9 Gastro-esophageal reflux disease without esophagitis; E78.5 Hyperlipidemia, unspecified; R55 Syncope and collapse; I10 Essential (primary) hypertension; M10.9 Gout, unspecified; I34.0 Nonrheumatic mitral (valve) insufficiency; E11.319 Type 2 diabetes mellitus with unspecified diabetic retinopathy without macular edema; E11.65 Type 2 diabetes mellitus with hyperglycemia; E66.9 Obesity, unspecified; T38.3X6A Underdosing of insulin and oral hypoglycemic [antidiabetic] drugs, initial encounter; Z79.4 Long term (current) use of insulin; Z86.73 Personal history of transient ischemic attack (TIA), and cerebral infarction without residual deficits; Z79.899 Other long term (current) drug therapy; Z79.82 Long term (current) use of aspirin; Z91.010 Allergy to peanuts; Z86.14 Personal history of Methicillin resistant Staphylococcus aureus infection; Z83.3 Family history of diabetes mellitus; Z79.84 Long term (current) use of oral hypoglycemic drugs; Z68.36 Body mass index [BMI] 36.0-36.9, adult; Z91.128 Patient's intentional underdosing of medication regimen for other reason
CPT/HCPCS: 96376; 96361 ×2; 96372 ×2; 96374; 99285; 36415; 95819; 93005; 93306; 97165; 92523; 80061; 80053; 80048; 82550; 82553 ×2; 83735; 84484; 85025 ×2; 85610; 85730; 81003; 71020; 93880; 70450; G0378 ×2; J1644 ×2

== ENCOUNTER 2017-12-11 21:08 | Emergency (ER) | payer OTHER ==
--- NOTE | 2017-12-11 21:43 | ED ---
General Adult HPI - General Chief complaint: Upper Respiratory Infection Stated complaint: Cough Time Seen by Provider: 12/11/17 21:26 Source: patient, family, RN notes reviewed Mode of arrival: ambulatory Limitations: no limitations - History of Present Illness Initial comments: Chief complaint and history of present illness a 52-year-old male here for complaint of a dry cough. He's been placed on amoxicillin starting yesterday for an upper respiratory tract infection as well as Mucinex. The patient just wants to make sure he doesn't have pneumonia. He has fits of coughing. Mild muscle aches and pains no fever. - Related Data Home Medications Medication Instructions Recorded Confirmed metFORMIN HCL 1,000 mg PO BID 09/16/16 12/11/17 Insulin Glargine [Lantus] 100 unit SQ HS 09/24/17 12/11/17 Insulin Glulisine [Apidra] 10 unit SQ AC-TID 09/24/17 12/11/17 Lisinopril [Zestril] 20 mg PO DAILY 09/24/17 12/11/17 Simvastatin [Zocor] 40 mg PO DAILY 09/24/17 12/11/17 Amoxicillin/Potassium Clav 1 tab PO BID 12/11/17 12/11/17 [Augmentin 875-125 Tablet] guaiFENesin [Mucinex] 600 mg PO BID 12/11/17 12/11/17 Previous Rx's Medication Instructions Recorded Aspirin EC [Ecotrin Low Dose] 81 mg PO BID #0 09/25/17 Oseltamivir [Tamiflu] 75 mg PO Q12HR 5 Days #10 cap 12/11/17 Allergies Allergy/AdvReac Type Severity Reaction Status Date / Time peanut [Peanut Butter] Allergy Itching Verified 12/11/17 22:02 Review of Systems ROS Statement: Those systems with pertinent positive or pertinent negative responses have been documented in the HPI. review of systems. No significant headache mild sore throat, dry when he coughs. Chest wall discomfort with coughing. Otherwise no pain at rest. No nausea no vomiting no diarrhea. No evidence of her complaints of any neuro deficits. All systems are reviewed . Past medical problems significant for TIA, insulin-dependent diabetes mellitus, GERD, hyperlipidemia hypertension. Patient has had no surgeries. He has had colonoscopy which was normal. Patient's family history no cancers. The patient has ALLERGIES to peanuts. Nonsmoker nondrinker. ROS Other: All systems not noted in ROS Statement are negative. Past Medical History Past Medical History: CVA/TIA, Diabetes Mellitus, GERD/Reflux, Hyperlipidemia, Hypertension Additional Past Medical History / Comment(s): TIA in 2009, IDDM type II, gout R great toe. History of Any Multi-Drug Resistant Organisms: MRSA Date of last positivie culture/infection: 2012 MDRO Source:: face/back Past Surgical History: No Surgical Hx Reported Additional Past Surgical History / Comment(s): colonoscopy-normal Additional Past Anesthesia/Blood Transfusion Reaction / Comment(s): Pt has never had general or spinal anesthesia. Past Psychological History: No Psychological Hx Reported Smoking Status: Never smoker Past Alcohol Use History: None Reported Past Drug Use History: None Reported - Past Family History Father Family Medical History: Diabetes Mellitus Mother Family Medical History: No Reported History, Diabetes Mellitus General Exam - General Exam Comments Initial Comments: General: The patient is awake and alert, planes of a dry cough. Vital signs temp 97.9 pulse 67 respiratory rate 20 pulse ox 99% room air blood pressure 112/67 Eye: Pupils are equal, round and reactive to light, extra-ocular movements are intact ; there is normal conjunctiva bilaterally. No signs of icterus. Ears, nose, mouth and throat: There are moist mucous membranes and no oral lesions. Neck: The neck is supple, there is no tenderness , thyroid not enlarged, no anterior cervical lymphadenopathy. No evidence of any stiff neck. Cardiovascular: There is a regular rate and rhythm. No murmur, rub or gallop is appreciated. Respiratory: Lungs are clear to auscultation, respirations are non-labored, breath sounds are equal. No wheezes, stridor, rales, or rhonchi.dry cough Gastrointestinal: Soft, non-distended, non-tender abdomen without masses or organomegaly noted. There is no rebound or guarding present. No CVA tenderness. Bowel sounds are unremarkable. Back: There is no tenderness to palpation in the midline. There is no obvious deformity. No rashes noted. Musculoskeletal: Normal ROM, no tenderness, There is no pedal edema. There is no calf tenderness or swelling. Sensation intact. Pulses equal bilaterally 2+. Neurological: no complaint of numbness tingling or any dysfunction. No focal or lateralizing findings. Skin: Skin is warm and dry and no rashes or lesions are noted. Limitations: no limitations Course Vital Signs 12/11/17 12/11/17 21:18 21:58 Temperature 97.9 F Pulse Rate 67 Respiratory 20 18 Rate Blood Pressure 112/67 O2 Sat by Pulse 99 Oximetry Medical Decision Making - Medical Decision Making Medical decision making; 52-year-old male here with his . The patient was placed on amoxicillin for an upper respiratory tract infection starting just yesterday but he has a dry cough muscle aches and pains is not feeling better. Patient's chest x-ray was done and this was reviewed with the radiologist his entire report was reviewed his final impression is no acute process. As read by Dr. Master Alcala. Labs show influenza be positive. The patient was started on Tamiflu this evening. He was advised to continue on complains amoxicillin increase his fluids use Tylenol or ibuprofen for pain or fever. If he develops any changes such as difficulty breathing he's return emergency room. - Lab Data Lab Results 12/11/17 Range/Units 21:50 Influenza Type A RNA Not Detected (Not Detectd) Influenza Type B (PCR) Detected H (Not Detectd) Disposition Clinical Impression: Influenza B Disposition: HOME SELF-CARE Condition: Stable Instructions: Upper Respiratory Infection (ED), Influenza (ED) Additional Instructions: increase fluids, rest, ibuprofen and Tylenol as needed for fever back muscle aches and pains. Take Tamiflu 75 mg twice a day for 5 days. Follow-up with your family physician return emergency room if he have any difficulty such as worsening breathing. Prescriptions: Oseltamivir [Tamiflu] 75 mg PO Q12HR 5 Days #10 cap Referrals: Adam Werner MD [Primary Care Provider] - 1-2 days Time of Disposition: 22:38
--- NOTE | 2017-12-11 22:04 | XR ---
EXAMINATION: XR chest 2V DATE AND TIME: 12/11/2017 9:48 PM ORDERING PROVIDER: Royer Silveira MD CLINICAL INDICATION: dry cough TECHNIQUE: PA and lateral COMPARISON: 09/24/2017 DESCRIPTION: The lungs are clear. The pleural spaces are negative. Right hemidiaphragm elevated, as was seen on the prior study. The cardiac silhouette is not enlarged. The mediastinal and pleural silhouettes are unremarkable. The skeletal structures are intact without focal findings. The soft tissues are unremarkable. IMPRESSION: NO ACUTE PROCESS.
[2017-12-11] MEDS ORDERED: OSELTAMIVIR 75 MG CAP PO STA (22:34)
[2017-12-11 22:53] VITALS: BP 123/70; PULSE 73; RESP 16; TEMP 98.8
== END 2017-12-11 22:53 | disposition home or self-care (01) ==
LOC: EC 21:08
DX: J10.1 Influenza due to other identified influenza virus with other respiratory manifestations (principal); E11.9 Type 2 diabetes mellitus without complications; I10 Essential (primary) hypertension; E78.5 Hyperlipidemia, unspecified; Z86.14 Personal history of Methicillin resistant Staphylococcus aureus infection; Z91.010 Allergy to peanuts; Z79.4 Long term (current) use of insulin; Z79.84 Long term (current) use of oral hypoglycemic drugs; Z79.899 Other long term (current) drug therapy
CPT/HCPCS: 71046; 87502; 93005; 99284

== ENCOUNTER → 2018-05-17 | Outpatient (CLI) | payer OTHER ==
[2018-05-17 13:33] LABS: Basophils % (A) 0 %; Eosinophils # (A) 0.3 k/uL (0-0.7); Eosinophils % (A) 4 %; HCT 42.1 % (39.0-53.0); HGB 14.4 gm/dL (13.0-17.5); Lymphocytes # (A) 1.9 k/uL (1.0-4.8); Lymphocytes % (A) 23 %; MCH 30.1 pg (25.0-35.0); MCHC 34.3 g/dL (31.0-37.0); MCV 87.9 fL (80.0-100.0); Mean Platelet Volume 6.9; Monocytes # (A) 0.5 k/uL (0-1.0); Monocytes % (A) 7 %; Neutrophils # (A) 5.2 k/uL (1.3-7.7); Neutrophils % (A) 64 %; Platelet Count 194 k/uL (150-450); RBC 4.79 m/uL (4.30-5.90); RDW 13.9 % (11.5-15.5); WBC 8.1 k/uL (3.8-10.6)
[2018-05-17 14:02] LABS: ALT 38 U/L (21-72); AST 28 U/L (17-59); Albumin 4.1 g/dL (3.5-5.0); Alkaline Phosphatase 82 U/L (38-126); Anion Gap 11 mmol/L; Blood Urea Nitrogen 18 mg/dL (9-20); Calcium 9.3 mg/dL (8.4-10.2); Carbon Dioxide 25 mmol/L (22-30); Chloride 105 mmol/L (98-107); Cholesterol 177 mg/dL (<200); Glucose 134 mg/dL (74-99); HDL Cholesterol 38 mg/dL (40-60); LDL Cholesterol,Calculated 113 mg/dL (0-99); Potassium 5.1 mmol/L (3.5-5.1); Sodium 141 mmol/L (137-145); Total Bilirubin 0.3 mg/dL (0.2-1.3); Total Protein 7.5 g/dL (6.3-8.2); Triglycerides 129 mg/dL (<150)
[2018-05-17 21:31] LABS: Hemoglobin A1C 7.9 % (4.0-6.0)
== END | disposition home or self-care (01) ==
LOC: LABWHC1 12:32
PROVIDERS: ATTEND Nurse Practitioner Primary Care
DX: E78.00 Pure hypercholesterolemia, unspecified (principal); E11.9 Type 2 diabetes mellitus without complications
CPT/HCPCS: 36415; 80053; 80061; 83036; 85025

== ENCOUNTER → 2018-12-21 | Outpatient (CLI) | payer OTHER ==
[2018-12-22 00:48] LABS: Hemoglobin A1C 7.8 % (4.0-6.0)
[2018-12-22 01:12] LABS: Albumin 4.3 g/dL (3.80-4.90); Albumin/Globulin Ratio 1.48 (1.60-3.17); Anion Gap 10.5 mmol/L (4.00-12.00); Calcium 9.1 mg/dL (8.7-10.3); Carbon Dioxide 24.5 mmol/L (21.6-31.8); Globulin 2.9 g/dL (1.6-3.3); LDL Cholesterol,Calculated 114.8 mg/dL (0.0-131.0); Potassium 4.4 mmol/L (3.5-5.5); Total Bilirubin 0.4 mg/dL (0.3-1.2); Total Protein 7.2 g/dL (6.2-8.2); VLDL Calculation 18.2 mg/dL (5.00-40.00)
== END | disposition home or self-care (01) ==
LOC: LABWHC1 16:13
DX: E78.00 Pure hypercholesterolemia, unspecified (principal); E11.9 Type 2 diabetes mellitus without complications
CPT/HCPCS: 36415; 80053; 80061; 83036

== ENCOUNTER → 2019-01-04 | Outpatient (CLI) | payer OTHER ==
[2019-01-04 12:45] LABS: Basophils % (A) 0 %; Eosinophils # (A) 0.3 k/uL (0-0.7); Eosinophils % (A) 4 %; HCT 43.6 % (39.0-53.0); Lymphocytes # (A) 1.9 k/uL (1.0-4.8); Lymphocytes % (A) 22 %; MCH 29.2 pg (25.0-35.0); MCHC 32.2 g/dL (31.0-37.0); MCV 90.7 fL (80.0-100.0); Mean Platelet Volume 6.5; Monocytes # (A) 0.5 k/uL (0-1.0); Monocytes % (A) 5 %; Neutrophils # (A) 5.7 k/uL (1.3-7.7); Neutrophils % (A) 66 %; Platelet Count 216 k/uL (150-450); RDW 14.3 % (11.5-15.5); WBC 8.6 k/uL (3.8-10.6)
--- NOTE | 2019-01-04 16:41 | XR ---
EXAMINATION TYPE: XR knee complete LT DATE OF EXAM: 01/04/2019 COMPARISON: NONE HISTORY: 53-year-old male anterior left knee pain and swelling TECHNIQUE: 3 views FINDINGS: Mild degenerative spurring patellofemoral compartment and minimal in the medial compartment. Small kn ee joint effusion. Mild prepatellar soft tissue swelling. Extensor mechanism appears intact. No acute fracture, subluxation, or dislocation seen. IMPRESSION: 1. Small knee joint effusion and prepatellar soft tissue swelling. If concern for internal derangemen t, MRI can be considered. 2. Mild degenerative spurring in the patellofemoral and medial compartments. 3. No acute osseous abnormal ECG.
== END | disposition home or self-care (01) ==
LOC: LABWHC1 11:14
DX: M25.462 Effusion, left knee (principal); M76.892 Other specified enthesopathies of left lower limb, excluding foot; M25.562 Pain in left knee
CPT/HCPCS: 36415; 84550; 85025

== ENCOUNTER 2020-01-29 | Emergency (ER) | payer OTHER | END 2020-01-29 13:44 | disposition home or self-care (01) | CPT/HCPCS: 99281 ==

== ENCOUNTER → 2020-07-30 | Outpatient (CLI) | payer OTHER ==
[2020-07-30 16:44] LABS: Basophils # (A) 0.1 k/uL (0-0.2); Basophils % (A) 1 %; Eosinophils # (A) 0.3 k/uL (0-0.7); Eosinophils % (A) 3 %; HCT 42.6 % (39.0-53.0); HGB 13.9 gm/dL (13.0-17.5); Lymphocytes # (A) 2.3 k/uL (1.0-4.8); Lymphocytes % (A) 23 %; MCH 28.8 pg (25.0-35.0); MCHC 32.5 g/dL (31.0-37.0); MCV 88.5 fL (80.0-100.0); Mean Platelet Volume 7.3; Monocytes # (A) 0.6 k/uL (0-1.0); Monocytes % (A) 6 %; Neutrophils # (A) 6.5 k/uL (1.3-7.7); Neutrophils % (A) 65 %; Platelet Count 236 k/uL (150-450); RBC 4.82 m/uL (4.30-5.90); RDW 13.8 % (11.5-15.5)
[2020-07-31 03:16] LABS: African American GFR (CKD) 87.7 (60.0-200.0); Albumin 4.2 g/dL (3.80-4.90); Albumin/Globulin Ratio 1.56 (1.60-3.17); Anion Gap 10.8 mmol/L (4.00-12.00); BUN/Creat Ratio 14.55 Ratio (12.00-20.00); Calcium 9.4 mg/dL (8.7-10.3); Carbon Dioxide 24.2 mmol/L (21.6-31.8); Globulin 2.7 g/dL (1.6-3.3); LDL Cholesterol,Calculated 124.8 mg/dL (0.0-131.0); Non-African American GFR(CKD) 75.7 (60.0-200.0); Potassium 3.9 mmol/L (3.5-5.5); Prostate Specific Antigen 0.8 ng/mL (0.0-3.5); Total Bilirubin 0.4 mg/dL (0.2-1.2); Total Protein 6.9 g/dL (6.2-8.2); VLDL Calculation 31.2 mg/dL (5.00-40.00)
== END | disposition home or self-care (01) ==
LOC: LABWHC1 16:16
PROVIDERS: ATTEND Family Medicine
DX: E78.00 Pure hypercholesterolemia, unspecified (principal); E11.9 Type 2 diabetes mellitus without complications; I10 Essential (primary) hypertension; Z12.5 Encounter for screening for malignant neoplasm of prostate
CPT/HCPCS: 36415; 80053; 80061; 83036; 84153; 84443; 85025

== ENCOUNTER → 2021-11-15 | Outpatient (CLI) | payer BC ==
[2021-11-15 14:43] LABS: Basophils # (A) 0.07 X 10*3/uL (0.00-0.10); Basophils % (A) 0.9 %; Eosinophils % (A) 2.5 %; HCT 44.9 % (39.6-50.0); HGB 14.7 g/dL (13.0-17.0); Lymphocytes # (A) 1.79 X 10*3/uL (0.90-5.00); MCH 28.8 pg (27.0-32.0); MCHC 32.7 g/dL (32.0-37.0); Monocytes # (A) 0.62 X 10*3/uL (0.20-1.00); Monocytes % (A) 7.6 %; Neutrophils # (A) 5.41 X 10*3/uL (1.80-7.70); Neutrophils % (A) 66.6 %; Platelet Count 243 X 10*3/uL (140-440); RDW 13.4 % (11.5-14.5); WBC 8.12 X 10*3/uL (4.50-10.00)
[2021-11-15 16:31] LABS: ALT 20 U/L (10-49); AST 17 U/L (14-35); African American GFR (CKD) 109.7 (60.0-200.0); Albumin/Globulin Ratio 1.08 (1.60-3.17); Alkaline Phosphatase 94 U/L (41-126); Calcium 9.2 mg/dL (8.7-10.3); Carbon Dioxide 25.1 mmol/L (20.0-27.5); Chloride 103 mmol/L (96-109); Chol/HDL Ratio 5.78 Ratio; Globulin 3.7 g/dL (1.6-3.3); Glucose 179 mg/dL (70-110); LDL Cholesterol,Calculated 172.6 mg/dL (0.0-131.0); Non-African American GFR(CKD) 94.7 (60.0-200.0); Potassium 4.1 mmol/L (3.5-5.5); Sodium 141 mmol/L (135-145); Total Protein 7.7 g/dL (6.2-8.2)
== END | disposition home or self-care (01) ==
LOC: LABWHC1 09:55
PROVIDERS: ATTEND Family Medicine
DX: Z12.5 Encounter for screening for malignant neoplasm of prostate (principal); I10 Essential (primary) hypertension; E78.00 Pure hypercholesterolemia, unspecified; E11.9 Type 2 diabetes mellitus without complications
CPT/HCPCS: 36415; 80053; 80061; 83036; 84153; 84443; 85025

== ENCOUNTER → 2023-03-04 | Outpatient (CLI) | payer BC ==
[2023-03-04 20:42] LABS: ALT 30 U/L (10-49); AST 24 U/L (14-35); Chol/HDL Ratio 3.76 Ratio; LDL Cholesterol,Calculated 100.4 mg/dL (0.0-131.0)
== END | disposition home or self-care (01) ==
LOC: LABWHC1 14:30
PROVIDERS: ATTEND Family Medicine
DX: E78.00 Pure hypercholesterolemia, unspecified (principal)
CPT/HCPCS: 36415; 80061; 84450; 84460

== ENCOUNTER → 2023-11-02 | Outpatient (CLI) | payer BC | END | disposition home or self-care (01) | LOC: LABWHC1 14:20 | PROVIDERS: ATTEND Family Medicine | DX: E11.65 Type 2 diabetes mellitus with hyperglycemia (principal) | CPT/HCPCS: 36415; 83036 ==

== ENCOUNTER → 2024-03-21 | Outpatient (CLI) | payer BC | END | disposition home or self-care (01) | LOC: LABWHC1 15:09 | PROVIDERS: ATTEND Family Medicine | DX: E11.65 Type 2 diabetes mellitus with hyperglycemia (principal) | CPT/HCPCS: 36415; 83036 ==

== ENCOUNTER → 2024-04-20 | Outpatient (CLI) | payer BC ==
[2024-04-20 19:43] LABS: Blood Urea Nitrogen 18.3 mg/dL (9.0-27.0)
[2024-04-20 19:44] LABS: Carbon Dioxide 22.4 mmol/L (21.6-31.8); Chloride 104 mmol/L (96-109); Potassium 4.2 mmol/L (3.5-5.5); Sodium 138 mmol/L (135-145)
== END | disposition home or self-care (01) ==
LOC: LABWHC1 15:11
PROVIDERS: ATTEND Family Medicine
DX: E11.65 Type 2 diabetes mellitus with hyperglycemia (principal)
CPT/HCPCS: 36415; 80051; 82565; 84520

== ENCOUNTER → 2024-07-21 | Outpatient (CLI) | payer BC ==
[2024-07-21 15:45] LABS: Basophils # (A) 0.04 X 10*3/uL (0.00-0.10); Basophils % (A) 0.5 %; Eosinophils # (A) 0.23 X 10*3/uL (0.04-0.35); HCT 45.3 % (39.6-50.0); HGB 14.9 g/dL (13.0-17.0); Lymphocytes # (A) 1.82 X 10*3/uL (0.90-5.00); Lymphocytes % (A) 23.6 %; MCH 29.5 pg (27.0-32.0); MCHC 32.9 g/dL (32.0-37.0); MCV 89.7 FL (80.0-97.0); Mean Platelet Volume 10.3 FL (9.5-12.2); Monocytes # (A) 0.56 X 10*3/uL (0.20-1.00); Monocytes % (A) 7.3 %; NRBC Per 100 WBC 0 X 10*3/uL (0.00-0.01); Neutrophils # (A) 5.03 X 10*3/uL (1.80-7.70); Neutrophils % (A) 65.3 %; Platelet Count 231 X 10*3/uL (140-440); RBC 5.05 X 10*6/uL (4.40-5.60); RDW 13.5 % (11.5-14.5)
[2024-07-21 17:31] LABS: Blood Urea Nitrogen 21.4 mg/dL (9.0-27.0); Iron 90 UG/DL (65-175)
[2024-07-21 17:32] LABS: Chloride 108 mmol/L (96-109); Sodium 141 mmol/L (135-145)
== END | disposition home or self-care (01) ==
LOC: LABWHC1 10:14
PROVIDERS: ATTEND Family Medicine
DX: E11.65 Type 2 diabetes mellitus with hyperglycemia (principal); D64.9 Anemia, unspecified
CPT/HCPCS: 36415; 80051; 82565; 82728; 83036; 83540; 84520; 85025

== ENCOUNTER → 2025-05-30 | Outpatient (CLI) | payer BC ==
[2025-05-30 19:24] LABS: Basophils # (A) 0.07 X 10*3/uL (0.00-0.10); Basophils % (A) 0.9 %; Eosinophils # (A) 0.23 X 10*3/uL (0.04-0.35); Eosinophils % (A) 2.8 %; HCT 40.4 % (39.6-50.0); HGB 13.4 g/dL (13.0-17.0); Immature Grans, Automated 0.20 %; Lymphocytes # (A) 2.21 X 10*3/uL (0.90-5.00); Lymphocytes % (A) 27.3 %; MCH 29.3 pg (27.0-32.0); MCHC 33.2 g/dL (32.0-37.0); MCV 88.4 FL (80.0-97.0); Monocytes # (A) 0.77 X 10*3/uL (0.20-1.00); Monocytes % (A) 9.5 %; NRBC Per 100 WBC 0 X 10*3/uL (0.00-0.01); Neutrophils # (A) 4.81 X 10*3/uL (1.80-7.70); Neutrophils % (A) 59.3 %; Platelet Count 227 X 10*3/uL (140-440); RBC 4.57 X 10*6/uL (4.40-5.60); RDW 14.0 % (11.5-14.5); WBC 8.11 X 10*3/uL (4.50-10.00)
[2025-05-30 19:38] LABS: BUN/Creat Ratio 22.56 Ratio (12.00-20.00); Blood Urea Nitrogen 20.3 mg/dL (9.0-27.0); Cholesterol 239.00 mg/dL (0.00-200.00); Glucose 126 mg/dL (70-110); HDL Cholesterol 41.90 mg/dL (40.00-60.00); LDL Cholesterol,Calculated 177.7 mg/dL (0.0-131.0); Triglycerides 97.10 mg/dL (0.00-149.00); VLDL Calculation 19.42 mg/dL (5.00-40.00)
[2025-05-30 19:39] LABS: ALT 19 U/L (10-49); AST 23 U/L (14-35); Albumin 4.0 g/dL (3.8-4.9); Albumin/Globulin Ratio 1.21 Ratio (1.60-3.17); Alkaline Phosphatase 80 U/L (41-126); Anion Gap 13.50 mmol/L (4.00-12.00); Calcium 9.3 mg/dL (8.7-10.3); Carbon Dioxide 21.5 mmol/L (21.6-31.8); Chloride 106 mmol/L (96-109); Globulin 3.3 g/dL (1.6-3.3); Potassium 4.6 mmol/L (3.5-5.5); Prostate Specific Antigen 1.15 ng/mL (0.000-3.500); Sodium 141 mmol/L (135-145); Total Protein 7.3 g/dL (6.2-8.2)
== END | disposition home or self-care (01) ==
LOC: LABWHC1 14:53
PROVIDERS: ATTEND Family Medicine
DX: Z00.00 Encounter for general adult medical examination without abnormal findings (principal); Z12.5 Encounter for screening for malignant neoplasm of prostate; I10 Essential (primary) hypertension; E78.5 Hyperlipidemia, unspecified; E11.65 Type 2 diabetes mellitus with hyperglycemia; Z79.4 Long term (current) use of insulin
CPT/HCPCS: 36415; 80053; 80061; 83036; 84153; 84443; 85025